=== PATIENT | female | born 1940 | race Caucasian/White ===

== ENCOUNTER 2016-05-19 14:15 | Outpatient (CLI) | payer MEDICARE | END 2016-05-19 14:16 | disposition home or self-care (01) | DX: G47.33 Obstructive sleep apnea (adult) (pediatric) (principal) | CPT/HCPCS: 99214; G0463 ==

== ENCOUNTER 2016-07-17 13:28 | Outpatient (CLI) | payer MEDICARE | END 2016-07-17 13:29 | disposition home or self-care (01) | DX: G47.33 Obstructive sleep apnea (adult) (pediatric) (principal) | CPT/HCPCS: 99213; G0463 ==

== ENCOUNTER 2017-01-14 12:25 | Outpatient (CLI) | payer MEDICARE ==
[2017-01-14 12:49] LABS: BASOPHILS # (AUTO) 0.1 10^3/uL (0.0-0.1); BASOPHILS % (AUTO) 1.2 %; EOSINOPHILS # (AUTO) 0.2 10^3/uL (0.0-0.7); EOSINOPHILS % (AUTO) 2.5 %; HCT - HEMATOCRIT 41.3 % (37.0-47.0); HGB - HEMOGLOBIN 13.6 g/dL (12.0-16.0); LYMPHOCYTES # (AUTO) 3.4 10^3/uL (1.5-3.5); LYMPHOCYTES % (AUTO) 40.2 %; MEAN CORPUSCULAR HEMOGLOBIN 30.1 pg (27.0-31.0); MEAN CORPUSCULAR HGB CONC 32.9 g/dL (32.0-36.0); MEAN CORPUSCULAR VOLUME 91.6 fL (81.0-99.0); MEAN PLATELET VOLUME 8.5 fL (7.9-10.8); MONOCYTES # (AUTO) 0.7 10^3/uL (0.0-1.0); MONOCYTES % (AUTO) 8.2 %; NEUTROPHILS % (AUTO) 47.9 %; RED BLOOD COUNT 4.51 10^6/uL (4.20-5.40); RED CELL DISTRIBUTION WIDTH 14.3 % (12.0-15.0); UNCORRECTED WHITE BLOOD COUNT 8.4 x10^3/uL; WHITE BLOOD COUNT 8.4 x10^3/uL (4.8-10.8)
[2017-01-14 15:21] LABS: THYROID STIMULATING HORMONE 25.61 uIU/mL (0.34-5.60)
== END 2017-01-14 12:26 | disposition home or self-care (01) ==
LOC: LAB 12:25
PROVIDERS: ATTEND Physician Assistant
DX: R53.83 Other fatigue (principal)
CPT/HCPCS: 36415; 84436; 84443; 84480; 84484; 85025

== ENCOUNTER 2017-01-14 12:53 | Outpatient (CLI) | payer MEDICARE | END 2017-01-14 12:54 | disposition home or self-care (01) | LOC: RT 12:53 | PROVIDERS: ATTEND Physician Assistant | DX: R53.83 Other fatigue (principal); R06.02 Shortness of breath | CPT/HCPCS: 36415; 84436; 84443; 84480; 84484; 85025; 93005 ==

== ENCOUNTER 2017-05-28 13:56 | Outpatient (CLI) | payer MEDICARE ==
--- NOTE | 2017-05-28 16:21 | XRAY Report ---
DATE OF SERVICE: 05/28/2017 TWO-VIEW CHEST: 05/28/2017 CLINICAL INDICATION: Cough for 3 weeks. COMPARISON: 02/03/2014 FINDINGS: Frontal and lateral views of the chest demonstrate a normal cardiac silhouette. There is a new right basilar infiltrate present. No effusion or pneumothorax is present. IMPRESSION: NEW RIGHT BASILAR INFILTRATE. TD: 05/28/2017 16:20
== END 2017-05-28 13:57 | disposition home or self-care (01) ==
LOC: DI 13:56
PROVIDERS: ATTEND Nurse Practitioner Family
DX: R91.8 Other nonspecific abnormal finding of lung field (principal)
CPT/HCPCS: 71046

== ENCOUNTER 2017-09-16 16:25 | Outpatient (CLI) | payer MEDICARE ==
--- NOTE | 2017-09-17 09:34 | XRAY Report ---
THREE VIEW RIGHT KNEE: 09/16/2017 CLINICAL INDICATION: Pain. FINDINGS: AP, lateral, sunrise views of the right knee demonstrate mild osteoarthritis, with small osteophytes. Chondrocalcinosis is present. There is no evidence of fracture. No effusion is seen. IMPRESSION: MILD OSTEOARTHRITIS, WITH CHONDROCALCINOSIS. TD: 09/17/2017 09:20
== END 2017-09-16 16:26 | disposition home or self-care (01) ==
LOC: DI 16:25
PROVIDERS: ATTEND Nurse Practitioner Family
DX: M25.561 Pain in right knee (principal); M17.11 Unilateral primary osteoarthritis, right knee; M11.261 Other chondrocalcinosis, right knee

== ENCOUNTER 2017-10-29 07:41 | Outpatient (CLI) | payer MEDICARE ==
--- NOTE | 2017-10-29 15:07 | MRI Report ---
Procedure Date: 10/29/2017 Accession Number: [id number] / [id number] Procedure: MRI - Knee RT W/O CPT Code: FULL RESULT: EXAM: RIGHT KNEE MRI WITHOUT CONTRAST EXAM DATE: 10/29/2017 08:38 AM. CLINICAL HISTORY: Right knee pain and osteoarthritis. COMPARISON: Right knee radiography from 09/16/2017. TECHNIQUE: Multiplanar, multisequence T1-weighted and fluid-sensitive sequences of the knee without contrast. Other: None. FINDINGS: Bones and articular cartilage: Grade 2 chondromalacia at the medial femoral condyle. Grade 2-3 chondromalacia and subchondral marrow edema at the anteromedial aspect of the medial tibial plateau. Grade 2 chondromalacia at the lateral femoral condyle. Grade 2-3 chondromalacia patella. Grade 2-3 chondromalacia at the femoral trochlea. Focal grade 3-4 chondromalacia and small subcortical cyst at the inferior aspect of the medial trochlear facet. Small marginal osteophytes at the femoral condyles, patella, and femoral trochlea. Medial Meniscus: Oblique tear at the medial meniscal body (coronal images 15 and 16). Lateral Meniscus: Degenerative signal within the posterior horn. No definite tear. Cruciate Ligaments: The anterior and posterior cruciate ligaments are intact. Collateral Ligaments: The medial collateral and lateral collateral ligamentous structures are intact. Tendons: The quadriceps, patellar, semimembranosus, and popliteus tendons are unremarkable. Musculature: No edema or fatty atrophy. Other: Very small joint effusion. Small popliteal cyst. No loose bodies. The medial and lateral retinacula are intact. The subcutaneous tissues and fat pads are unremarkable. IMPRESSION: 1. Tricompartmental osteoarthritis. 2. Oblique tear at the medial meniscal body. 3. Very small joint effusion. Small popliteal cyst. RADIA MUSCULOSKELETAL RADIOLOGY SECTION
== END 2017-10-29 07:42 | disposition home or self-care (01) ==
LOC: DI 07:41
PROVIDERS: ATTEND Physician Assistant
DX: M25.561 Pain in right knee (principal); M17.11 Unilateral primary osteoarthritis, right knee; S83.241A Other tear of medial meniscus, current injury, right knee, initial encounter; M71.21 Synovial cyst of popliteal space [Baker], right knee